=== PATIENT | female | born 1985 | race Hispanic/Latino ===

== ENCOUNTER 2017-08-14 16:40 | Observation (INO) | payer OTHER, MEDICAID ==
[~2017-08-14] VITALS: Ht 149.9 cm; Wt 49.4 kg
[2017-08-14] MEDS ORDERED: LACTATED RINGERS 1000ML 1,000 ML IV ONE (17:38)
[2017-08-14] MEDS ORDERED: LACTATED RINGERS 1000ML IV SCH (17:45)
[2017-08-14] MEDS ORDERED: PROMETHAZINE HCL 25 MG/ML 1ML AMPULE IM SCH (17:45)
[2017-08-14] MEDS ORDERED: PROMETHAZINE HCL 25 MG/ML 1ML AMPULE IM ONE (17:47)
[2017-08-14] MEDS ORDERED: LACTATED RINGERS 1000ML 1,000 ML IV SCH (18:00)
== END 2017-08-14 20:10 | disposition home or self-care (01) ==
LOC: LDH 16:40
DX: O26.851 Spotting complicating pregnancy, first trimester (principal); O21.0 Mild hyperemesis gravidarum; O26.891 Other specified pregnancy related conditions, first trimester; R10.9 Unspecified abdominal pain; Z3A.01 Less than 8 weeks gestation of pregnancy
CPT/HCPCS: 96372; G0378 ×4; J2550; J7120 ×2; 96360; 96361

== ENCOUNTER 2017-08-19 09:49 | Emergency (ER) | payer OTHER, MEDICAID | END 2017-08-19 10:58 | disposition home or self-care (01) | LOC: EDH 09:49 | DX: O10.911 Unspecified pre-existing hypertension complicating pregnancy, first trimester (principal); R51 Headache; Z3A.01 Less than 8 weeks gestation of pregnancy ==

== ENCOUNTER 2018-01-05 16:07 | Inpatient (IN) | payer OTHER, MEDICAID ==
[~2018-01-05] VITALS: Ht 149.9 cm; Wt 68.9 kg
[2018-01-05 16:49] LABS: APPEARANCE,URINE Clear (CLEAR); BILIRUBIN,URINE Negative (NEGATIVE); COLOR,URINE Yellow (YELLOW); GLUCOSE, URINE (UA) Negative (NEGATIVE); KETONES,URINE Trace mg/dL (NEGATIVE); LEUKOCYTE ESTERASE ,URINE Moderate (NEGATIVE); NITRATE,URINE Negative (NEGATIVE); OCCULT BLOOD,URINE Small (NEGATIVE); PH,URINE 6.5 (5.0-8.0); PROTEIN,URINE Negative (NEGATIVE)
[2018-01-05 17:24] LABS: RBC,URINE 0-1 /HPF (0-1)
[2018-01-05 17:25] LABS: BACTERIA,URINE Rare /HPF (None Seen)
[2018-01-05] MEDS ORDERED: CALCIUM GLUCONATE 1 GM/10 ML VIAL IV PRN (19:00)
[2018-01-05] MEDS ORDERED: MAGNESIUM SULFATE 1,000 ML IV SCH (19:00)
[2018-01-05] MEDS ORDERED: MAGNESIUM 4GM PREMIX 100ML 100 ML IV SCH (19:00)
[2018-01-05] MEDS: DEXAMETHASONE SOD PHOSPHATE 4 MG/ML 1ML VIAL IM SCH (19:39)
[2018-01-05] MEDS: AMPICILLIN 2GM+NS 100ML 100 ML IV SCH (19:39)
[2018-01-05 21:20] LABS: HEMATOCRIT 26.7 % (36-48); MEAN CORPUSCULAR HEMOGLOBIN 23.6 pg (27.0-33.0); MEAN CORPUSCULAR HGB CONC 31.9 g/dL (32.0-36.0); MEAN CORPUSCULAR VOLUME 74.1 fL (79-99); PLATELET COUNT (AUTO) 416 K/uL (130-400); RED CELL DISTRIBUTION WIDTH 17.1 % (11.0-15.5); WHITE BLOOD COUNT (AUTO) 14.9 K/uL (4.8-10.8)
[2018-01-05 22:04] LABS: AMPHET/METH SCREEN,URINE NEGATIVE (NEGATIVE); BARBITURATE SCREEN, URINE NEGATIVE (NEGATIVE); BENZODIAZEPINES SCREEN,URINE NEGATIVE (NEGATIVE); CANNABINOID SCREEN,URINE NEGATIVE (NEGATIVE); COCAINE SCREEN,URINE NEGATIVE (NEGATIVE); OPIATE SCREEN,URINE NEGATIVE (NEGATIVE); PHENCYCLIDINE SCREEN,URINE NEGATIVE (NEGATIVE)
[2018-01-06] MEDS: AMPICILLIN 2GM+NS 100ML 100 ML IV SCH ×3 (01:47→20:05)
[2018-01-06] MEDS: DEXAMETHASONE SOD PHOSPHATE 4 MG/ML 1ML VIAL IM SCH ×2 (01:48→07:36)
[2018-01-06] MEDS ORDERED: FENTANYL CITRATE PF 50 MCG/1 ML 2ML VIAL ONE (08:37)
[2018-01-06] MEDS ORDERED: LACTATED RINGERS 1000ML 1,000 ML IV ONE (11:55)
[2018-01-07] MEDS ORDERED: LACTATED RINGERS 1000ML 1,000 ML IV ONE (01:37)
[2018-01-07] MEDS: AMPICILLIN 2GM+NS 100ML 100 ML IV SCH ×4 (01:41→20:15)
[2018-01-07 08:24] LABS: HEPATITIS Bs ANTIGEN SCREEN P Negative (Negative)
[2018-01-07 08:29] LABS: BASOPHILS % (AUTO) 0.1 % (0.0-5.0); EOSINOPHILS % (AUTO) 0.1 % (0.0-8.0); HEMATOCRIT 25.4 % (36-48); LYMPHOCYTES % (AUTO) 8.9 % (21.0-51.0); MEAN CORPUSCULAR HEMOGLOBIN 23.6 pg (27.0-33.0); MEAN CORPUSCULAR HGB CONC 31.5 g/dL (32.0-36.0); MEAN CORPUSCULAR VOLUME 74.9 fL (79-99); MONOCYTES % (AUTO) 7.3 % (3.0-13.0); NEUTROPHILS % (AUTO) 83.6 % (40.0-77.0); PLATELET COUNT (AUTO) 420 K/uL (130-400); RED BLOOD CELL COUNT(AUTO) 3.39 MIL/uL (4.00-5.50); RED CELL DISTRIBUTION WIDTH 17.4 % (11.0-15.5); WHITE BLOOD COUNT (AUTO) 24.2 K/uL (4.8-10.8)
[2018-01-07 09:13] LABS: BASOPHILS % (AUTO) 0.2 % (0.0-5.0); EOSINOPHILS % (AUTO) 0.2 % (0.0-8.0); HEMATOCRIT 24.8 % (36-48); LYMPHOCYTES % (AUTO) 9.7 % (21.0-51.0); MEAN CORPUSCULAR HGB CONC 32.2 g/dL (32.0-36.0); MEAN CORPUSCULAR VOLUME 74.4 fL (79-99); MONOCYTES % (AUTO) 4.5 % (3.0-13.0); NEUTROPHILS % (AUTO) 85.4 % (40.0-77.0); NUCLEATED RED BLOOD CELLS 0.1 % (0.0-0.19); PLATELET COUNT (AUTO) 423 K/uL (130-400); RED BLOOD CELL COUNT(AUTO) 3.34 MIL/uL (4.00-5.50); RED CELL DISTRIBUTION WIDTH 17.4 % (11.0-15.5); WHITE BLOOD COUNT (AUTO) 24.3 K/uL (4.8-10.8)
[2018-01-07] MEDS: ACETAMINOPHEN-CODEINE 300/30MG TAB PO SCH (12:10)
[2018-01-08] MEDS ORDERED: LACTATED RINGERS 1000ML 1,000 ML IV ONE ×2 (00:06→22:28)
[2018-01-08] MEDS: AMPICILLIN 2GM+NS 100ML 100 ML IV SCH ×4 (02:12→20:06)
[2018-01-08 07:14] LABS: BASOPHILS % (AUTO) 0.4 % (0.0-5.0); HEMATOCRIT 24.9 % (36-48); LYMPHOCYTES % (AUTO) 20.5 % (21.0-51.0); MEAN CORPUSCULAR HEMOGLOBIN 23.1 pg (27.0-33.0); MEAN CORPUSCULAR HGB CONC 31.1 g/dL (32.0-36.0); MEAN CORPUSCULAR VOLUME 74.2 fL (79-99); MONOCYTES % (AUTO) 8.8 % (3.0-13.0); NEUTROPHILS % (AUTO) 69.3 % (40.0-77.0); NUCLEATED RED BLOOD CELLS 0.1 % (0.0-0.19); PLATELET COUNT (AUTO) 375 K/uL (130-400); RED BLOOD CELL COUNT(AUTO) 3.35 MIL/uL (4.00-5.50); RED CELL DISTRIBUTION WIDTH 17.5 % (11.0-15.5); WHITE BLOOD COUNT (AUTO) 17.7 K/uL (4.8-10.8)
[2018-01-09] MEDS: AMPICILLIN 2GM+NS 100ML 100 ML IV SCH ×4 (01:57→19:54)
[2018-01-09 06:16] LABS: BASOPHILS % (AUTO) 0.2 % (0.0-5.0); HEMATOCRIT 25.2 % (36-48); LYMPHOCYTES % (AUTO) 19.1 % (21.0-51.0); MEAN CORPUSCULAR HEMOGLOBIN 23.6 pg (27.0-33.0); MEAN CORPUSCULAR HGB CONC 31.9 g/dL (32.0-36.0); MEAN CORPUSCULAR VOLUME 73.8 fL (79-99); MONOCYTES % (AUTO) 9.6 % (3.0-13.0); NEUTROPHILS % (AUTO) 70.1 % (40.0-77.0); NUCLEATED RED BLOOD CELLS 0.3 % (0.0-0.19); PLATELET COUNT (AUTO) 414 K/uL (130-400); RED BLOOD CELL COUNT(AUTO) 3.41 MIL/uL (4.00-5.50); RED CELL DISTRIBUTION WIDTH 17.7 % (11.0-15.5)
[2018-01-09] MEDS: LACTATED RINGERS 1000ML 1,000 ML IV SCH ×2 (17:57→21:43)
[2018-01-09] MEDS: FERROUS SULFATE 325 MG TABLET.DR PO SCH (20:52)
[2018-01-09] MEDS ORDERED: ACETAMINOPHEN-CODEINE 300/30MG TAB PO ONE (21:15)
[2018-01-09] MEDS: ACETAMINOPHEN-CODEINE 300/30MG TAB PO SCH (21:18)
[2018-01-10] MEDS: AMPICILLIN 2GM+NS 100ML 100 ML IV SCH (01:48)
[2018-01-10] MEDS: LACTATED RINGERS 1000ML 1,000 ML IV SCH (05:16)
[2018-01-10 05:27] LABS: BASOPHILS % (AUTO) 0.7 % (0.0-5.0); EOSINOPHILS % (AUTO) 1.5 % (0.0-8.0); HEMATOCRIT 25.6 % (36-48); LYMPHOCYTES % (AUTO) 18.3 % (21.0-51.0); MEAN CORPUSCULAR HEMOGLOBIN 22.9 pg (27.0-33.0); MEAN CORPUSCULAR HGB CONC 31.1 g/dL (32.0-36.0); MEAN CORPUSCULAR VOLUME 73.5 fL (79-99); MONOCYTES % (AUTO) 5.9 % (3.0-13.0); NEUTROPHILS % (AUTO) 73.6 % (40.0-77.0); NUCLEATED RED BLOOD CELLS 0.4 % (0.0-0.19); PLATELET COUNT (AUTO) 381 K/uL (130-400); RED BLOOD CELL COUNT(AUTO) 3.48 MIL/uL (4.00-5.50); RED CELL DISTRIBUTION WIDTH 17.6 % (11.0-15.5); WHITE BLOOD COUNT (AUTO) 17.1 K/uL (4.8-10.8)
[2018-01-10] MEDS ORDERED: AZITHROMYCIN 250 MG TABLET PO SCH ×2 (10:00→11:00)
[2018-01-10] MEDS ORDERED: AMOXICILLIN 250 MG CAPSULE PO SCH (10:00)
[2018-01-10] MEDS: FERROUS SULFATE 325 MG TABLET.DR PO SCH (12:09)
[2018-01-10] MEDS ORDERED: PORACTANT ALFA 240 MG/3 ML VIAL IH ONE ×2 (19:26)
[2018-01-10] MEDS ORDERED: CEFAZOLIN SODIUM 1 GM VIAL ONE (19:26)
[2018-01-10] MEDS ORDERED: CEFAZOLIN SODIUM 1 GM VIAL IVP PRN (19:30)
[2018-01-10] MEDS ORDERED: MIDAZOLAM HCL 1 MG/ML 2ML VIAL ONE (20:11)
[2018-01-10] MEDS ORDERED: LACTATED RINGERS 1000ML 1,000 ML IV ONE (21:01)
[2018-01-10] MEDS ORDERED: OXYTOCIN 10 USP UNITS/ML ONE (21:02)
[2018-01-10] MEDS ORDERED: OXYTOCIN-LR 20 UNITS/1000 ML 1,000 ML IV PRN (21:37)
[2018-01-10] MEDS ORDERED: MEPERIDINE-PF 50 MG/ML SYG ONE (21:44)
[2018-01-10] MEDS ORDERED: PROMETHAZINE HCL 25 MG/ML 1ML AMPULE IM ONE (21:44)
[2018-01-10] MEDS ORDERED: MEPERIDINE-PF 25 MG/ML SYG ONE (21:44)
[2018-01-10] MEDS ORDERED: MEPERIDINE-PF 75 MG/ML SYG IM PRN (21:45)
[2018-01-10] MEDS ORDERED: SODIUM CHLORIDE 0.9% 10 ML VIAL IVP PRN (21:45)
[2018-01-10] MEDS ORDERED: DEXTROSE 5 %-0.45 % NACL 1,000 ML IV PRN (21:45)
[2018-01-10] MEDS ORDERED: PROMETHAZINE HCL 25 MG/ML 1ML AMPULE IM PRN (21:45)
[2018-01-10] MEDS ORDERED: IBUPROFEN 800 MG TAB PO STA (23:01)
[2018-01-10] MEDS ORDERED: IBUPROFEN 800 MG TAB ONE (23:03)
[2018-01-11] MEDS ORDERED: PHARMACY COMMUNICATION MISC PRN
[2018-01-11] MEDS ORDERED: MEPERIDINE-PF 50 MG/ML SYG ONE (00:29)
[2018-01-11] MEDS ORDERED: MEPERIDINE-PF 25 MG/ML SYG ONE (00:30)
[2018-01-11] MEDS ORDERED: MORPHINE-NS 50 MG/50 ML 50 ML IV PRN (00:30)
[2018-01-11] MEDS ORDERED: NALOXONE HCL 0.4 MG/1 ML ML IVP PRN ×3 (00:30→01:00)
[2018-01-11] MEDS ORDERED: MORPHINE SULFATE 2 MG/ML 1ML SYG ONE (00:53)
[2018-01-11] MEDS ORDERED: METOCLOPRAMIDE 10 MG/2 ML VIAL IVP PRN ×2 (01:00)
[2018-01-11] MEDS ORDERED: EPHEDRINE SULFATE 50 MG/ML AMPULE IVP PRN (01:00)
[2018-01-11] MEDS ORDERED: MORPHINE SULFATE 2 MG/ML 1ML SYG IVP PRN (01:00)
[2018-01-11] MEDS ORDERED: ONDANSETRON HCL MDV 20ML 2 MG/ML VIAL IVP PRN (01:00)
[2018-01-11] MEDS ORDERED: HYDROCODONE/ACETAMINOPHEN 5/325 MG TAB PO PRN (01:00)
[2018-01-11] MEDS ORDERED: ONDANSETRON HCL 4 MG/2 ML VIAL IVP PRN ×2 (01:00)
[2018-01-11] MEDS ORDERED: ONDANSETRON HCL 4 MG/2 ML 8 MG in SODIUM CHLORIDE 0.9% 50 ML IVP NR (01:00)
[2018-01-11] MEDS ORDERED: MORPHINE SULFATE 5 MG/ML VIAL SIVP PRN (01:00)
[2018-01-11] MEDS ORDERED: PROMETHAZINE HCL 25 MG/ML 1ML AMPULE IM PRN (01:00)
[2018-01-11] MEDS ORDERED: DIPHENHYDRAMINE HCL 25 MG CAPSULE PO PRN (01:00)
[2018-01-11] MEDS ORDERED: DiphenhydrAMINE HCL 50 MG/ML VIAL IVP PRN (01:00)
[2018-01-11] MEDS ORDERED: LACTATED RINGERS 1000ML 1,000 ML IV ONE (03:12)
[2018-01-11] MEDS ORDERED: OXYTOCIN 10 USP UNITS/ML ONE (03:13)
[2018-01-11] MEDS: HYDROCODONE/ACETAMINOPHEN 5/325 MG TAB PO PRN (07:40)
[2018-01-11 07:58] VITALS: BP 138/85
[2018-01-11 07:59] LABS: BASOPHILS % (AUTO) 0.4 % (0.0-5.0); EOSINOPHILS % (AUTO) 0.6 % (0.0-8.0); HEMATOCRIT 25.4 % (36-48); LYMPHOCYTES % (AUTO) 14.8 % (21.0-51.0); MEAN CORPUSCULAR HEMOGLOBIN 23.7 pg (27.0-33.0); MEAN CORPUSCULAR HGB CONC 32.1 g/dL (32.0-36.0); MEAN CORPUSCULAR VOLUME 73.8 fL (79-99); MONOCYTES % (AUTO) 5.6 % (3.0-13.0); NEUTROPHILS % (AUTO) 78.6 % (40.0-77.0); PLATELET COUNT (AUTO) 371 K/uL (130-400); RED BLOOD CELL COUNT(AUTO) 3.45 MIL/uL (4.00-5.50); RED CELL DISTRIBUTION WIDTH 17.7 % (11.0-15.5); WHITE BLOOD COUNT (AUTO) 19.9 K/uL (4.8-10.8)
[2018-01-11] MEDS ORDERED: PREN-154 PO (08:35)
[2018-01-11] MEDS ORDERED: AZITHROMYCIN 250 MG TABLET PO SCH (09:00)
[2018-01-11] MEDS ORDERED: LANOLIN 30GM OINTMENT TP PRN (09:45)
[2018-01-11] MEDS ORDERED: CEFAZOLIN SODIUM 1 GM VIAL IVP SCH ×2 (09:45→19:00)
[2018-01-11] MEDS ORDERED: ACETAMINOPHEN EXTRA STRENGTH 500 MG TABLET PO PRN (09:45)
[2018-01-11] MEDS ORDERED: BISACODYL 10 MG SUPP.RECT RC PRN (09:45)
[2018-01-11] MEDS ORDERED: DOCUSATE SODIUM 100 MG CAP PO ONE (10:05)
[2018-01-11] MEDS: SIMETHICONE 80 MG TAB.CHEW PO PRN ×4 (10:12→21:05)
[2018-01-11] MEDS: FERROUS SULFATE 325 MG TABLET.DR PO SCH ×2 (10:13→21:05)
[2018-01-11] MEDS: DIPH,PERTUSS(ACELL),TET VAC/PF 0.5 ML VIAL IM SCH (10:14)
[2018-01-11] MEDS: ACETAMINOPHEN-CODEINE 300/30MG TAB PO SCH ×2 (10:15→18:42)
[2018-01-11 11:21] VITALS: BP 122/71
[2018-01-11] MEDS: CEFAZOLIN SODIUM 1 GM VIAL IVP SCH ×2 (11:33→18:42)
[2018-01-11] MEDS: IBUPROFEN 800 MG TAB PO SCH ×2 (14:02→21:06)
[2018-01-11 16:20] VITALS: BP 125/75
[2018-01-11] MEDS ORDERED: ACETAMINOPHEN-CODEINE 300/30MG TAB PO PRN (18:15)
[2018-01-11 19:39] VITALS: BP 124/77
[2018-01-11] MEDS: DOCUSATE SODIUM 100 MG CAP PO SCH (21:04)
[2018-01-11] MEDS ORDERED: IBUPROFEN 800 MG TAB PO SCH (21:45)
[2018-01-12 00:13] VITALS: BP 131/90
[2018-01-12] MEDS: HYDROCODONE/ACETAMINOPHEN 5/325 MG TAB PO PRN (00:38)
[2018-01-12] MEDS: DIPH,PERTUSS(ACELL),TET VAC/PF 0.5 ML VIAL IM SCH (00:50)
[2018-01-12] MEDS: CEFAZOLIN SODIUM 1 GM VIAL IVP SCH (03:01)
[2018-01-12 03:42] VITALS: BP 110/65
[2018-01-12] MEDS: IBUPROFEN 800 MG TAB PO SCH (05:09)
[2018-01-12 06:15] LABS: BASOPHILS % (AUTO) 0.9 % (0.0-5.0); EOSINOPHILS % (AUTO) 1.9 % (0.0-8.0); HEMATOCRIT 24.6 % (36-48); LYMPHOCYTES % (AUTO) 16.1 % (21.0-51.0); MEAN CORPUSCULAR HEMOGLOBIN 22.8 pg (27.0-33.0); MEAN CORPUSCULAR HGB CONC 30.7 g/dL (32.0-36.0); MEAN CORPUSCULAR VOLUME 74.3 fL (79-99); MONOCYTES % (AUTO) 7.3 % (3.0-13.0); NEUTROPHILS % (AUTO) 73.8 % (40.0-77.0); NUCLEATED RED BLOOD CELLS 0.1 % (0.0-0.19); PLATELET COUNT (AUTO) 345 K/uL (130-400); RED BLOOD CELL COUNT(AUTO) 3.31 MIL/uL (4.00-5.50); RED CELL DISTRIBUTION WIDTH 17.8 % (11.0-15.5); WHITE BLOOD COUNT (AUTO) 17.9 K/uL (4.8-10.8)
[2018-01-12 07:27] VITALS: BP 124/69
[2018-01-12] MEDS: DOCUSATE SODIUM 100 MG CAP PO SCH (08:50)
[2018-01-12] MEDS: SIMETHICONE 80 MG TAB.CHEW PO PRN (08:50)
[2018-01-12] MEDS: FERROUS SULFATE 325 MG TABLET.DR PO SCH (08:50)
== END 2018-01-12 10:50 | disposition home or self-care (01) | DRG 765 ==
LOC: OBSVTOIN 16:07 → LDH 16:07 → WSH 01-11 07:58
PROVIDERS: ADMIT Specialist; ATTEND Specialist
PROC: 0UCC0ZZ Extirpation of Matter from Cervix, Open Approach (ICD-10-PCS; 2018-01-10)
PROC: 3E0234Z Introduction of Serum, Toxoid and Vaccine into Muscle, Percutaneous Approach (ICD-10-PCS; 2018-01-10)
PROC: 10D00Z1 Extraction of Products of Conception, Low, Open Approach (ICD-10-PCS; principal; 2018-01-10 19:15)
DX: O42.913 Preterm premature rupture of membranes, unspecified as to length of time between rupture and onset of labor, third trimester (principal); O41.1230 Chorioamnionitis, third trimester, not applicable or unspecified; N88.3 Incompetence of cervix uteri; O32.1XX0 Maternal care for breech presentation, not applicable or unspecified; O34.211 Maternal care for low transverse scar from previous cesarean delivery; Z37.0 Single live birth; Z3A.28 28 weeks gestation of pregnancy; Z23 Encounter for immunization
CPT/HCPCS: 36415; 59510; 76805; 76815; 76819; 80305; 81001; 83735; 85025; 85027; 86592; 86850; 86900; 86901; 87070; 87076; 87340; 88305; 90715; A4218; A4314; A4344; A4606; G0008; J0290; J0690; J1100; J2175; J2250; J2270; J2550; J2590; J3010; J3475; J7120; Q2038

== ENCOUNTER 2025-01-14 17:58 | Emergency (ER) | payer MEDICAID, OTHER ==
[~2025-01-14] VITALS: Ht 149.9 cm; Wt 65.8 kg
[~2025-01-14 17:58] MED LIST: PREN-154 PO
[2025-01-14 18:36] LABS: IMMATURE GRANULOCYTE ABSOLUTE 0.03 K/uL (0-1); NUCLEATED RED BLOOD CELLS 0.0 % (0.0-0.19); PLATELET COUNT (AUTO) 442 K/uL (130-400); RED BLOOD CELL COUNT(AUTO) 5.10 MIL/uL (4.00-5.50); RED CELL DISTRIBUTION WIDTH 15.0 % (11.0-15.5); WHITE BLOOD COUNT (AUTO) 11.3 K/uL (4.8-10.8)
--- NOTE | 2025-01-14 18:39 | EKG ---
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
[2025-01-14 18:43] LABS: CREATININE 0.8 mg/dL (0.5-1.0); GLOMERULAR FILTR. RATE CALC 95.0 mL/min (>90); GLUCOSE,RANDOM 97.0 mg/dL (70-105); SODIUM SERUM 138.0 mmol/L (136-145); UREA NITROGEN, BLOOD 12.0 mg/dL (7-18)
[2025-01-14 18:55] LABS: HCG,QUANTITATIVE 0.0 mIU/mL (0-5)
[2025-01-14 19:56] LABS: SARS-CoV-2, RNA, NAAT NEGATIVE SARS CoV-2 (NEGATIVE)
[2025-01-14 19:59] LABS: INFLUENZA TYPE A Negative For Type A (NEGATIVE); INFLUENZA TYPE B Negative For Type B (NEGATIVE)
[2025-01-14 19:59] LABS: APPEARANCE,URINE CLOUDY (CLEAR); GLUCOSE, URINE (UA) NEGATIVE (NEGATIVE); LEUKOCYTE ESTERASE ,URINE 75 Leu/uL (NEGATIVE); NITRATE,URINE NEGATIVE (NEGATIVE); OCCULT BLOOD,URINE +- (TRACE) (NEGATIVE)
[2025-01-14 20:01] LABS: ADD UA MICROSCOPIC YES
--- NOTE | 2025-01-14 20:04 | HMCIMG ---
EXAM: CT Head Without IV contrast. CLINICAL HISTORY: antonio, htn, n/v TECHNIQUE: Axial computed tomography images of the head/brain without intravenous contrast. COMPARISON: None provided. FINDINGS: BRAIN: Mild diffuse cerebral atrophy is seen. No evidence of acute hemorrhage. No mass lesion. No CT evidence for acute territorial infarct. No midline shift or extra-axial collections. VENTRICLES: No hydrocephalus. ORBITS: The orbits are unremarkable. SINUSES AND MASTOIDS: The paranasal sinuses and mastoid air cells are clear. BONES: No fracture. SOFT TISSUES: Unremarkable. IMPRESSION: 1. No acute intracranial findings. /[place]
[2025-01-14] MEDS: 0.9%NACL 1000ML 1,000 ML IV STA (20:05)
[2025-01-14] MEDS: FAMOTIDINE 20MG VIAL IV STA (20:05)
[2025-01-14 20:07] LABS: SQUAMOUS EPITHELIAL CELL,UR RARE /HPF (0-2)
--- NOTE | 2025-01-14 20:10 | ERN ---
ED Note History of Present Illness Stated Complaint: HIGH BP,HEADACHE,NAUSEA Chief Complaint: Hypertension Time Seen by MD: 17:59 Time Seen by Midlevel: 18:01 Dictation: 39-year-old female with a history of hypertension and migraines coming in with complaints of elevated blood pressure despite taking her home medications with a headache nausea and vomiting, states this has been going on for two weeks. Patient takes losartan 50 mg once daily. No other medical problems. LMP 01/10/2025. NIH 0 at the time of triage Allergies: Coded Allergies: No Known Drug Allergies (Unverified Allergy, Unknown, 08/14/17) Home Meds Reported Medications Vits #93/Iron Fum/FA ( Formula Tablet) 1 Each Tablet, 1 EACH PO DAILY, TAB 01/11/18 Past Medical History Past Medical History: Hypertension Surgical History: None LMP: Jan 10, 2025 Review of System Dictation Constitutional: Negative for fever,chills, and weight loss Eyes: Negative for injury, pain,redness, and discharge ENT: Negative for injury,pain or swelling Cardiovascular: Negative for chest pain, palpitations, and edema Respiratory: Negative for shortness of breath, cough, and wheezing, Abdomen/GI: Negative for abdominal pain, complaining of nausea and vomiting Back: Negative for injury and pain : Negative for injury, bleeding and discharge MS/Extremity: Negative for injury and deformity Skin: Negative for rash, and discoloration Neuro: Positive for headache, no weakness, no numbness, no tingling, and no seizure Psych: Negative for suicide ideation, homicidal ideation, and hallucinations Review of Systems: was completed Initial Vital Sign VS Vital Signs Date Time Temp Pulse Resp B/P (MAP) Pulse Ox O2 Delivery O2 Flow Rate FiO2 01/14/25 17:59 99.0 107 20 169/106 97 0 01/14/25 19:40 Room Air* 21 Physical Exam Dictation General: awake, alert, NAD Head/Face: Normocephalic, atraumatic Eyes: PERRL, EOMI, vision at baseline ENT: oral cavity clear, TMs clear, no signs of infection Neck: Trachea midline, supple, no nuchal rigidity Cardiovascular: RRR, normal S1/S2, No MRGs, no JVD Respiratory: CTAB, no respiratory distress, No rales or wheezes Abdomen: Soft, non-tender, non-distended, normal bowel sounds, no guarding or rebound. Skin: Warm, dry, normal turgor, no rash MS/Extremity: Pulses equal, no cyanosis, neurovascular intact, FROM Neuro: COAx4, GCS 15, strength 5/5, CN 2-12 intact, normal cerebellar exam, normal gait, Psych: Normal behavior, mood, and affect normal Results (Laboratory/Radiology) Laboratory/Radiology Laboratory Tests Test 01/14/25 18:28 01/14/25 19:36 01/14/25 19:46 White Blood Count 11.3 K/uL (4.8-10.8) H Red Blood Count 5.10 MIL/uL (4.00-5.50) Hemoglobin 14.2 g/dL (12.0-16.0) Hematocrit 42.5 % (36-48) Mean Corpuscular Volume 83.3 fL (79-99) Mean Corpuscular Hemoglobin 27.8 pg (27.0-33.0) Mean Corpuscular Hemoglobin Concent 33.4 g/dL (32.0-36.0) Red Cell Distribution Width 15.0 % (11.0-15.5) Platelet Count 442 K/uL (130-400) H Mean Platelet Volume 9.5 fL (7.5-10.5) Immature Granulocyte % (Auto) 0.3 % (0-1) Neutrophils (%) (Auto) 63.3 % (40.0-77.0) Lymphocytes (%) (Auto) 27.6 % (21.0-51.0) Monocytes (%) (Auto) 7.8 % (3.0-13.0) Eosinophils (%) (Auto) 0.4 % (0.0-8.0) Basophils (%) (Auto) 0.6 % (0.0-5.0) Neutrophils # (Auto) 7.2 K/uL (1.8-7.7) Lymphocytes # (Auto) 3.1 K/uL (1.0-4.8) Monocytes # (Auto) 0.9 K/uL (0.1-1.0) Eosinophils # (Auto) 0.04 K/uL (0.00-0.70) Basophils # (Auto) 0.07 K/uL (0.00-0.20) Absolute Immature Granulocyte (auto 0.03 K/uL (0-1) Nucleated Red Blood Cells 0.0 % (0.0-0.19) Sodium Level 138 mmol/L (136-145) Potassium Level 3.2 mmol/L (3.5-5.1) L Chloride Level 101 mmol/L (101-111) Carbon Dioxide Level 27 mmol/L (21-32) Blood Urea Nitrogen 12 mg/dL (7-18) Creatinine 0.8 mg/dL (0.5-1.0) Glomerular Filtration Rate Calc 95 mL/min (>90) Random Glucose 97 mg/dL (70-105) Total Calcium 9.1 mg/dL (8.5-10.1) Troponin I High Sensitivity 7 ng/L (4-50) Lipase 46 U/L (16-77) Human Chorionic Gonadotropin, Quant 0 mIU/mL (0-5) Influenza Type A Antigen Negative For Type A Influenza Type B Antigen Negative For Type B SARS-CoV-2, RNA, NAAT NEGATIVE SARS CoV-2 Urine Color YELLOW (YELLOW) Urine Appearance CLOUDY (CLEAR) H Urine pH 6.5 (5.0-8.0) Urine Specific Ross 1.024 (1.001-1.031) Urine Protein 10 mg/dL (NEGATIVE) H Urine Glucose (UA) NEGATIVE mg/dL (NEGATIVE) Urine Ketones 5 mg/dL (NEGATIVE) H Urine Occult Blood +- (TRACE) (NEGATIVE) H Urine Nitrate NEGATIVE (NEGATIVE) Urine Bilirubin NEGATIVE mg/dL (NEGATIVE) Urine Urobilinogen 12 mg/dL (0.2-1.0) H Urine Leukocyte Esterase 75 [place]/uL (NEGATIVE) H Urine RBC 6-10 /HPF (0-1) H Urine WBC 26-50 /HPF (0-1) H Urine Squamous Epithelial Cells RARE /HPF (0-2) Urine Bacteria MOD /HPF (None Seen) Labs Reviewed?: Yes EKG Comment: EKGs did not 1832. Sinus rhythm rate of 95. No STEMI interpreted by ER CT Scan Comment: [facility] [address] [place] [id number] IMAGING REPORT Signed PATIENT: TAWANA QUINTEROS MR#: [id number] : SEX: F AGE: 39 LOCATION: [facility] ORDER 16 STATUS: REG ER REPORT#: [id number] SERVICE 14 REASON: antonio, htn, n/v ORDERING PHYSICIAN: YOLANDA WASHINGTON NP PROCEDURE: HEAD WO - CT HEAD/BRAIN W/O CONTRAST EXAM: CT Head Without IV contrast. CLINICAL HISTORY: antonio, htn, n/v TECHNIQUE: Axial computed tomography images of the head/brain without intravenous contrast. COMPARISON: None provided. FINDINGS: BRAIN: Mild diffuse cerebral atrophy is seen. No evidence of acute hemorrhage. No mass lesion. No CT evidence for acute territorial infarct. No midline shift or extra-axial collections. VENTRICLES: No hydrocephalus. ORBITS: The orbits are unremarkable. SINUSES AND MASTOIDS: The paranasal sinuses and mastoid air cells are clear. BONES: No fracture. SOFT TISSUES: Unremarkable. IMPRESSION: 1. No acute intracranial findings. /[place] DICTATED BY: STEFANIA CASTANEDA MD DATE: 01/14/252103 ELECTRONICALLY SIGNED BY: STEFANIA CASTANEDA MD DATE: 01/14/252103 ED Course ED Course Orders Procedure Category Date Status Time Cbc With Differential LAB 01/14/25 Complete 18:15 Basic Metabolic Panel LAB 01/14/25 Complete 18:15 Troponin I High LAB 01/14/25 Complete Sensitivity 18:15 Urinalysis Profile LAB 01/14/25 Complete 18:15 Hcg,Quantitative LAB 01/14/25 Complete 18:15 Ct Head/Brain W/O CT 01/14/25 Resulted Contrast 18:15 Lipase LAB 01/14/25 Complete 18:15 12 Lead Ekg Tracing- EKG 01/14/25 Complete Technical 18:15 Covid Rna Naat LAB 01/14/25 Complete 18:15 Influenza Type A & B, LAB 01/14/25 Complete Rapid 18:15 0.9%Nacl 1000ml (Ns PHA 01/14/25 Complete 1000ml) 18:15 Ondansetron 4mg Inj PHA 01/14/25 Complete (Zofran 4mg Inj) 18:15 Famotidine 20mg Vial PHA 01/14/25 Complete (Pepcid 20mg Vial) 18:15 Culture Urine CASEY 01/14/25 In Process 20:02 Potassium Bicarb/Cit PHA 01/14/25 Complete Ac 25meq (K-Lyte Ta 20:07 Metoclopramide 10 PHA 01/14/25 Complete Mg/2 Ml Vial (Reglan 1 20:07 Diphenhydramine Hcl PHA 01/14/25 Complete (Benadryl Inj) 20:07 Ketorolac PHA 01/14/25 Complete Tromethamine 15mg/Ml 20:07 Hydralazine 20mg Inj PHA 01/14/25 Verified (Apresoline 20mg In 20:52 Current Medications Medications (Trade) Dose Ordered Sig/Guerline Route PRN Reason Start Time Stop Time Status Last Admin Dose Admin Diphenhydramine HCl (BENAdryl INJ) 25 mg ONCE STAT IV 01/14/25 20:07 01/14/25 20:11 DC 01/14/25 20:18 Famotidine (Pepcid 20mg Vial) 20 mg ONCE STAT IV 01/14/25 18:15 01/14/25 18:20 DC 01/14/25 20:05 Ketorolac Tromethamine (toRADol) 15 mg ONCE STAT IV 01/14/25 20:07 01/14/25 20:11 DC 01/14/25 20:19 Metoclopramide HCl (regLAN 10MG IV) 10 mg ONCE STAT IVP 01/14/25 20:07 01/14/25 20:11 DC 01/14/25 20:19 Ondansetron HCl (zoFRAN 4MG INJ) 4 mg ONCE STAT IVP 01/14/25 18:15 01/14/25 18:20 DC 01/14/25 20:06 Potassium Bicarbonate (K-Lyte Tablet Eff 25 Meq Tablet.eff) 25 meq ONCE STAT PO 01/14/25 20:07 01/14/25 20:11 DC 01/14/25 20:18 Sodium Chloride 1,000 ml @ 1,000 mls/hr Q1H STAT IV 01/14/25 18:15 01/14/25 19:14 DC 01/14/25 20:05 Vital Signs Date Time Temp Pulse Resp B/P (MAP) Pulse Ox O2 Delivery O2 Flow Rate FiO2 01/14/25 19:40 98 16 164/81 98 Room Air* 0 21 01/14/25 17:59 99.0 107 20 169/106 97 0 Medical Decision Making MDM MDM: 39-year-old female with a history of hypertension and migraines coming in with complaints of elevated blood pressure despite taking her home medications with a headache nausea and vomiting, states this has been going on for two weeks. Patient takes losartan 50 mg once daily. No other medical problems. LMP 01/10/2025. NIH 0 at the time of triage. Blood work is unremarkable other than potassium of 3.2. We will placement given in the emergency room. Cardiac enzymes negative. EKGs shows does not show any reciprocal changes or ST elevations. A CT scan of the head shows no acute findings. After fluids, in the migraine cocktail patient states she feels relief however blood pressure is still 170 systolic. Patient will receive one dose of hydralazine have patient follow up outpatient. Discussed with the patient she needs to follow up to see PCP's you need it just doses adjustment or additional medication for her blood pressure. Patient verbalized understanding, answered all questions. Differential diagnosis: ICH, migraine, hypertensive urgency Rationale: Tests considered and ordered secondary to shared decision making include: Previous outside records reviewed: Old ER visits. Risk of complication and/or morbidity or mortality of patient management: None Medications-Per medication reconciliation Need for hospitalization: Patient does not meet criteria for hospitalization. Need for emergency major/minor surgery: No There are no social concerns with this patient. Prescription drug management Prescriptions will include symptomatic care Patient's prior external medical records from other ER visits were reviewed by me as indicated. Prior testing and results from previous visits were reviewed. Prior tests were taken into account with medical decision making and resource utilization, independent historian/historians were used to obtain complete medical history. I independently interpreted the test that were performed, results were reviewed by me and considered findings on radiology if ordered. Medical management and examination interpretation discussions were had by me with other qualified healthcare professionals as indicated for the patient's care. DX & DISP Disposition: Discharge Departure Impression: Primary Impression: Migraine Additional Impression: Hypertension Condition: Stable Additional Instructions: Follow up with your PCP as you might need a dosage adjustment or additional medications for your blood pressure. Return to the hospital if you have any worsening symptoms. Referrals: NIMA GIPSON MD (PCP) Time of Disposition: 20:55 I have reviewed the case, and I agree with, Diagnosis and Plan YOLANDA WASHINGTON NP Jan 14, 2025 20:10
[2025-01-14 21:16] VITALS: TEMP 98.5
[2025-01-14 21:32] VITALS: BP 148/80; PULSE 100; RESP 18; O2SAT 99
== END 2025-01-14 21:43 | disposition home or self-care (01) ==
LOC: EDH 17:58
DX: G43.909 Migraine, unspecified, not intractable, without status migrainosus (principal); I10 Essential (primary) hypertension; R10.2 Pelvic and perineal pain; Z20.822 Contact with and (suspected) exposure to COVID-19
CPT/HCPCS: 99285; 96375; 96374; 70450; 87635; 84484; 80048; 84702; 83690; 85025; 87086 ×2; 87186; 87804 ×2; 81001; 36415; 93005; J1885; J1200; J3490; J7030; J0360; J2405; J2765